=== PATIENT | male | born 1950 | race Caucasian/White ===

== ENCOUNTER → 2020-03-16 | Outpatient (CLI) | payer BC, MEDICARE | LOC: MHCPAIN 13:28 | DX: M47.817 Spondylosis without myelopathy or radiculopathy, lumbosacral region (principal); M54.5 Low back pain; M53.3 Sacrococcygeal disorders, not elsewhere classified; G89.29 Other chronic pain; M54.16 Radiculopathy, lumbar region; M48.061 Spinal stenosis, lumbar region without neurogenic claudication | CPT/HCPCS: G0463 ==

== ENCOUNTER → 2020-03-25 | Outpatient (CLI) | payer BC, MEDICARE | LOC: MHCPAIN 13:01 | DX: M47.817 Spondylosis without myelopathy or radiculopathy, lumbosacral region (principal); M54.5 Low back pain; M54.17 Radiculopathy, lumbosacral region | CPT/HCPCS: J1100; Q9967 ==

== ENCOUNTER 2020-05-18 09:07 | Day surgery (SDC) | payer MEDICARE, BC ==
[~2020-05-18] VITALS: Ht 180.3 cm; Wt 88.7 kg
[2020-05-18] VITALS (11 sets, daily range): BP systolic 99–139; BP diastolic 63–88; PULSE 75–81; TEMP 98.7
[2020-05-18] MEDS ORDERED: ZYLOPRIM 100MG100 MG PO (09:29)
[2020-05-18] MEDS ORDERED: ASPIRIN E.C. 8181 MG PO (09:30)
[2020-05-18] MEDS ORDERED: FISH OIL 500 M1 EAC1 PO (09:31)
[2020-05-18] MEDS ORDERED: COREG 3.123.125 MG/T PO (09:31)
[2020-05-18] MEDS ORDERED: NORCO 325 MG-51 TAB PO (09:32)
[2020-05-18] MEDS ORDERED: PRINIVIL10 MG PO (09:32)
[2020-05-18] MEDS ORDERED: GLUCOPHAGE1000 MG PO ×2 (09:33→09:34)
[2020-05-18] MEDS ORDERED: ONE-A-DAY ESSE1 EACH PO (09:34)
[2020-05-18] MEDS ORDERED: ZOCOR 40MG40 MG PO (09:35)
[2020-05-18] MEDS ORDERED: VIAGRA100 M1 PO (09:35)
[2020-05-18] MEDS ORDERED: ULTRAM 50MG TAB50 MG PO (09:36)
[2020-05-18 09:57] LABS: HEMATOCRIT 43.5 % (42.0-52.0); MEAN CELL VOLUME 85 fl (80.0-100.0); MEAN CORPUSCULAR HEMOGLOBIN 29 pg (27.0-31.0); MEAN CORPUSCULAR HGB CONC 35 g/dl (33.0-37.0); MEAN PLATELET VOLUME 9.1 fl (7.4-10.4); PLATELET COUNT 216 K/mm3 (130-400); RED BLOOD COUNT 5.14 M/mm3 (4.20-5.60); REDCELL DISTRIBUTION WIDTH-CV 13.5 % (11.5-14.5)
[2020-05-18 10:00] LABS: PROTHROMBIN TIME 11.6 SECONDS (9.7-12.8)
[2020-05-18 10:05] LABS: ALBUMIN 4.9 gm/dL (3.5-5.0); BILIRUBIN,TOTAL 0.7 mg/dL (0.0-1.0); CALCIUM 10.1 mg/dL (8.4-10.2); CREATININE, serum 0.77 (0.66-1.25); MAGNESIUM 1.8 mg/dL (1.6-2.3); POTASSIUM 4.2 mmol/L (3.4-5.0)
--- NOTE | 2020-05-18 10:55 | NUR ---
SEE MERGE DOCUMENTATION FOR MEDICATION ADMINISTRATION TIMES AND INTRA/POST PROCEDURE SEDATION ASSESSMENTS. RIGHT HAND BARBEAU TEST POSITIVE.
--- NOTE | 2020-05-18 15:15 | NUR ---
Remaining air from TR band was removed in 2ml increments with no bleeding from puncture site. Site dressed with 2x2 gauze and bandaid. INT DC'd with catheter intact, bleeding controlled. DC instructions reviewed and pt expresses understanding. He is assisted out by wheelchair to 's car.
== END 2020-05-18 15:15 | disposition home or self-care (01) ==
LOC: COL.CAR 09:07
PROVIDERS: Internal Medicine Cardiovascular Disease
DX: I25.10 Atherosclerotic heart disease of native coronary artery without angina pectoris (principal); R94.39 Abnormal result of other cardiovascular function study; E11.9 Type 2 diabetes mellitus without complications; I10 Essential (primary) hypertension; E78.5 Hyperlipidemia, unspecified; I45.4 Nonspecific intraventricular block; I08.1 Rheumatic disorders of both mitral and tricuspid valves; Z87.891 Personal history of nicotine dependence; Z82.3 Family history of stroke; Z79.82 Long term (current) use of aspirin; Z79.84 Long term (current) use of oral hypoglycemic drugs
CPT/HCPCS: J1644; J2250; J3010

== ENCOUNTER → 2024-07-09 | Outpatient (CLI) | payer MEDICARE, BC ==
[~2024-07-09] MED LIST: ASPIRIN E.C. 8181 MG PO; COREG 3.123.125 MG/T PO; FISH OIL 500 M1 EAC1 PO; GLUCOPHAGE1000 MG PO; NORCO 325 MG-51 TAB PO; ONE-A-DAY ESSE1 EACH PO; PRINIVIL10 MG PO; ULTRAM 50MG TAB50 MG PO; VIAGRA100 M1 PO; ZOCOR 40MG40 MG PO; ZYLOPRIM 100MG100 MG PO
== END ==
LOC: MHCPAIN 09:38
DX: M51.26 Other intervertebral disc displacement, lumbar region (principal); M48.061 Spinal stenosis, lumbar region without neurogenic claudication; M54.16 Radiculopathy, lumbar region; M96.1 Postlaminectomy syndrome, not elsewhere classified
CPT/HCPCS: G0463